=== PATIENT | male | born 1970 | race Caucasian/White ===

== ENCOUNTER 2016-08-16 06:05 | Day surgery (SDC) | payer OTHER ==
[~2016-08-16] VITALS: Ht 188 cm; Wt 122.5 kg
--- NOTE | 2016-08-16 08:06 | Operative Note ---
Surgeon/Diagnoses Surgeon/Transport Tank Technician(s) Date of procedure: 08/16/16 Surgeon: MD Jessica Bliss Diagnoses Pre-op diagnosis: Pilonidal cyst with recurrent abscess Post-op diagnosis Same Procedure Procedure Procedure: Excision of pilonidal cyst (incision and drainage with deroofing and superficial excision of tissue) Indications: RAMSEY AKINS is a 46 year-old Male with a history of pilonidal cyst with recurrent abscess. Findings: Punctum (4) Superior punctum with underlying abscess cavity/cyst Procedure Description: After informed consent was obtained, the patient was taken to the operating room and placed in the supine position. General anesthesia was induced and he was transferred to a prone position. The buttock cleft and surrounding area was prepped and draped in a sterile fashion. The superior punctum with underlying abscess was carefully opened with superficial excision of tissue. The abscess cavity was thoroughly drained and electrocautery was utilized to achieve hemostasis and also to thoroughly cauterize the entire surrounding tissue. This cavity connected to a separate punctum which was also taken with the excision of tissue. The punctum just inferior to the site was carefully opened onto a probe and the entire bed was cauterized. A fourth punctum that was most inferior was opened in a similar manner. All wounds were packed open with Kerlix that was moistened with 1 percent lidocaine. Dressings were applied and the patient was transferred to recovery in stable condition after extubation. EBL (ml): 10 Anesthesia: General Complications: No immediate Specimens: None for pathology Disposition Disposition: Stable to recovery from where he will be discharged home. He will begin twice- daily dressing changes tomorrow in follow-up in one week. at 0805
--- NOTE | 2016-08-16 08:18 | Anesthesia Record ---
Anesthesia Record Part II Discharge time: 838 Destination: Same day surgery PACU nurse assessment review? Yes Patient is: Awake, Stable Anesthesia complications? No at 0818
--- NOTE | 2016-08-16 08:18 | Anesthesia Record ---
Anesthesia Record Part I Total IV fluids: 1000 EBL (ml): 50 Urine Output: 0 (NOT MEASURED) B/P: 157/97 % SaO2: 95 Pulse: 86 Resps: 16 Temp: 97.2 Patient is: Drowsy, Stable Stable to PACU at: 0809 at 0817
[2016-08-16 09:53] VITALS: BP 125/70
== END 2016-08-16 09:35 | disposition home or self-care (01) ==
LOC: SDC 06:05
PROVIDERS: Surgery
PROC: 0HB8XZZ Excision of Buttock Skin, External Approach (ICD-10-PCS; principal; 2016-08-16 07:30)
DX: L05.01 Pilonidal cyst with abscess (principal)
CPT/HCPCS: J2405; J2710